=== PATIENT | female | born 2000 | race Caucasian/White ===

== ENCOUNTER 2023-12-24 19:33 | Emergency (ER) | payer BC, SELFPAY ==
[2023-12-24 19:44] VITALS: BP 136/79; PULSE 85; RESP 16; TEMP 37.1; O2SAT 98; BMI 37.8
--- NOTE | 2023-12-24 19:59 | PC.NURSE ---
pt reports blood with urinating, urine collected.
--- NOTE | 2023-12-24 20:00 | ED_ITS ---
HPI - Female Genitourinary General Chief complaint: Urogenital-Female Stated complaint: UTI Complaints Time Seen by Provider: 12/24/23 19:34 Source: patient Mode of arrival: walk-in History of Present Illness HPI Narrative: Patient is a 23-year-old female who presents to the emergency department with her mother for the evaluation of dysuria and hematuria that began today associated with vaginal discharge. She states this afternoon she noted discomfort with urination while on the toilet. She also noted a small amount of vaginal discharge and that there was blood in her urine. She has no abdominal pain, flank pain, back pain. She has had no objective fevers. She had nausea earlier but has had no vomiting. She does not feel nauseous now and is currently drinking water. She states she has had UTIs in the past. She does not have any concern for STD exposure. She is not concerned for . Related Data Previous Rx's ?Medication ?Instructions ?Recorded cephalexin 500 mg capsule 500 mg PO Q8H 7 days #21 caps 12/24/23 ondansetron 4 mg disintegrating 4 mg PO Q6H PRN nausea and 12/24/23 tablet vomiting #12 tabs phenazopyridine 200 mg tablet 200 mg PO Q8H 2 days #6 tabs 12/24/23 (Pyridium) Allergies Allergy/AdvReac Type Severity Reaction Status Date / Time No Known Drug Allergies Allergy Verified 12/24/23 19:48 Review of Systems ROS Constitutional Denies: fever or chills Ears, nose, mouth, and throat Denies: throat pain or nasal congestion Cardiovascular Denies: chest pain Respiratory Denies: shortness of breath or cough Gastrointestinal Reports: nausea; Denies: abdominal pain, vomiting or diarrhea Genitourinary Reports: painful urination, blood in urine and vaginal discharge; Denies: pelvic pain Musculoskeletal Denies: back pain Integumentary/Breast Denies: rash Neurological Denies: headache Exam Narrative Exam Narrative: Gen.: Awake, alert, in no distress Head: Normocephalic, atraumatic ENT: Moist mucous membranes Respiratory: No respiratory distress, lungs clear bilaterally Cardio: Regular rate and rhythm Gastrointestinal: Abdomen is soft, nondistended and nontender to palpation; No CVA tenderness or flank tenderness Extremities: Moves extremities equally Psych: Normal mood and affect Neuro: No focal neuro deficit Skin: Warm, dry, intact Constitutional Vital Signs, click to edit/add: Last Vital Signs Temp 98.8 F 12/24/23 19:44 Pulse 85 12/24/23 19:44 Resp 16 12/24/23 19:44 BP 136/79 12/24/23 19:44 Pulse Ox 98 12/24/23 19:44 O2 Del Method Room Air 12/24/23 19:44 Course Vital Signs Vital signs: Vital Signs Temperature 98.8 F 12/24/23 19:44 Pulse Rate 85 12/24/23 19:44 Respiratory Rate 16 12/24/23 19:44 Blood Pressure 136/79 12/24/23 19:44 Pulse Oximetry 98 12/24/23 19:44 Oxygen Delivery Method Room Air 12/24/23 19:44 Temperature 98.8 F 12/24/23 19:44 Pulse Rate 85 12/24/23 19:44 Respiratory Rate 16 12/24/23 19:44 Blood Pressure 136/79 12/24/23 19:44 Pulse Oximetry 98 12/24/23 19:44 Oxygen Delivery Method Room Air 12/24/23 19:44 MDM - Female Genitourinary MDM Narrative Medical decision making narrative: Patient with large leukocytes and blood on her urine specimen. test is negative and she will be treated with Keflex, Pyridium and Zofran for home. Follow-up with PCP and return to the ER if symptoms change or worsen. Medical Records Attestation: I reviewed the patient's medical records. Lab Data Attestation: I reviewed the patient's lab results. Labs: Lab Results 12/24/23 Range/Units 19:50 Urine Color Lt. yellow (YELLOW) Urine Clarity Clear (CLEAR) Urine pH 6.0 (5.0-9.0) Ur Specific [place] 1.010 (1.005-1.025) Urine Protein Trace (NEG/TRACE) mg/dL Urine Glucose (UA) Negative (NEGATIVE) mg/dL Urine Ketones Negative (NEGATIVE) mg/dL Urine Occult Blood Large A (NEGATIVE) Urine Nitrite Negative (NEGATIVE) Urine Bilirubin Negative (NEGATIVE) Urine Urobilinogen 0.2 (0.2-1.0) EU/dL Ur Leukocyte Esterase Large A (NEGATIVE) Urine RBC 5-10 A (0-2) #/HPF Urine WBC 75-100 A (NONE SEEN) #/HPF Ur Squamous Epith Cells Few A (NONE/RARE) #/LPF Urine Crystals None seen (None Seen) #/HPF Urine Bacteria Moderate A (NONE SEEN) #/HPF Urine Casts None seen (NONE SEEN) #/LPF Urine Mucus None seen (NONE SEEN) Ur Culture Indicated? Yes Urine HCG, Qual Negative (NEGATIVE) Discharge Plan Discharge Stand Alone Forms: Portal Instructions Chief Complaint: Urogenital-Female Clinical Impression: Urinary tract infection Patient Disposition: Home, Self-Care Time of Disposition Decision: 20:22 Condition: Good Prescriptions / Home Meds: New phenazopyridine [Pyridium] 200 mg tablet 200 mg PO Q8H 2 Days Qty: 6 0RF cephalexin 500 mg capsule 500 mg PO Q8H 7 Days Qty: 21 0RF ondansetron 4 mg tablet,disintegrating 4 mg PO Q6H PRN (Reason: nausea and vomiting) Qty: 12 0RF Print Language: Emirati Instructions: Urinary Tract Infection in Women (ED) Referrals: Physician,Non-Staff, MD [Primary Care Provider] - 1 week
[2023-12-24 20:11] LABS: Bilirubin Urine NEGATIVE (NEGATIVE); Blood Urine LARGE (NEGATIVE); Clarity Urine CLEAR (CLEAR); Color Urine LT. YELLOW (YELLOW); Glucose Urine UA NEGATIVE (NEGATIVE); Ketones Urine NEGATIVE (NEGATIVE); Leukocyte Esterase Urine LARGE (NEGATIVE); Nitrite Urine NEGATIVE (NEGATIVE); Protein Urine TRACE mg/dL (NEG/TRACE); Urobilinogen Urine 0.2 EU/dL (0.2-1.0)
[2023-12-24 20:12] LABS: HCG Qualitative Urine* NEGATIVE (NEGATIVE); Urine Microscopic Indicated YES
[2023-12-24 20:18] LABS: Bacteria Urine MODERATE #/HPF (NONE SEEN); WBC Urine 75-100 #/HPF (NONE SEEN)
[2023-12-24 20:19] LABS: Cast Seen? NONE SEEN #/LPF (NONE SEEN); Crystals Seen? None Seen #/HPF (None Seen); Mucus Urine NONE SEEN (NONE SEEN); Squamous Epithelial Cell Urine FEW #/LPF (NONE/RARE); Urine Culture Indicated YES
== END 2023-12-24 20:36 | disposition home or self-care (01) ==
PROVIDERS: Physician Assistant; Emergency Provider Emergency Medicine
DX: N39.0 Urinary tract infection, site not specified (principal); Z87.440 Personal history of urinary (tract) infections
CPT/HCPCS: 81001; 84703; 87086; 99283